=== PATIENT | male | born 1955 | race Caucasian/White ===

== ENCOUNTER → 2022-06-03 | Outpatient (CLI) | payer MEDICARE ==
[~2022-06-03] MED LIST: IOPAMIDOL 370 MG/ML 100 ML INFUS..BTL INJ ONE; SODIUM CHLORIDE 0.9% 250ML 250 ML ONE
[2022-06-03 14:31] LABS: CREATININE, SERUM 1.13 mg/dL (0.72-1.25)
== END ==
LOC: CT 13:44
PROVIDERS: ATTEND Urology
DX: R31.29 Other microscopic hematuria (principal)
CPT/HCPCS: 36415; 74178; 82565; 84520; J7050; Q9967